=== PATIENT | female | born 1940 | race Caucasian/White ===

== ENCOUNTER → 2023-09-28 10:57 | Outpatient (REF) | payer MEDICARE, BC, SELFPAY | LOC: HWRAD 10:57 | PROVIDERS: ATTENDING PHYSICIAN Internal Medicine Rheumatology; FAMILY PHYSICIAN Internal Medicine | DX: M25.551 Pain in right hip (principal) | CPT/HCPCS: 73523 ==

== ENCOUNTER → 2023-11-17 10:11 | Outpatient (REF) | payer MEDICARE, BC, SELFPAY | LOC: HWWDC 10:11 | PROVIDERS: ATTENDING PHYSICIAN Internal Medicine Hematology & Oncology; FAMILY PHYSICIAN Internal Medicine | DX: C50.412 Malignant neoplasm of upper-outer quadrant of left female breast (principal); D68.69 Other thrombophilia; D68.51 Activated protein C resistance; R79.89 Other specified abnormal findings of blood chemistry; D64.9 Anemia, unspecified; D53.9 Nutritional anemia, unspecified | CPT/HCPCS: 77063; 77067 ==

== ENCOUNTER → 2024-11-20 13:15 | Outpatient (REF) | payer MEDICARE, BC, SELFPAY | LOC: HWWDC 13:15 | PROVIDERS: ATTENDING PHYSICIAN Internal Medicine Hematology & Oncology; FAMILY PHYSICIAN Internal Medicine | DX: Z12.31 Encounter for screening mammogram for malignant neoplasm of breast (principal) | CPT/HCPCS: 77063; 77067 ==

== ENCOUNTER → 2025-04-14 11:29 | Outpatient (REF) | payer MEDICARE, BC, SELFPAY | LOC: HWRAD 11:29 | PROVIDERS: ATTENDING PHYSICIAN Internal Medicine Critical Care Medicine; FAMILY PHYSICIAN Internal Medicine | DX: R06.02 Shortness of breath (principal) | CPT/HCPCS: 71046 ==

== ENCOUNTER → 2025-06-17 10:46 | Outpatient (REF) | payer MEDICARE, BC, SELFPAY | LOC: HWRAD 10:46 | PROVIDERS: ATTENDING PHYSICIAN Internal Medicine Rheumatology; FAMILY PHYSICIAN Internal Medicine | DX: M81.0 Age-related osteoporosis without current pathological fracture (principal) | CPT/HCPCS: 77080 ==